=== PATIENT | male | born 1985 | race Caucasian/White ===

== ENCOUNTER → 2017-03-27 | Outpatient (CLI) | payer MEDICAID ==
[2017-03-27 11:03] LABS: Basophils % (A) 0 %; CHCM 33.8; Eosinophils # (A) 0.1 k/uL (0-0.7); Eosinophils % (A) 1 %; HCT 45.7 % (39.0-53.0); HDW 2.44; HGB 15.6 gm/dL (13.0-17.5); Luc # (Auto) 0.12; Luc % (Auto) 3; Lymphocytes # (A) 1.3 k/uL (1.0-4.8); Lymphocytes % (A) 27 %; MCH 30.3 pg (25.0-35.0); MCHC 34.1 g/dL (31.0-37.0); MCV 88.9 fL (80.0-100.0); Mean Platelet Volume 7.1; Monocytes # (A) 0.5 k/uL (0-1.0); Monocytes % (A) 10 %; Neutrophils # (A) 2.8 k/uL (1.3-7.7); Neutrophils % (A) 59 %; RBC 5.14 m/uL (4.30-5.90); RDW 12.5 % (11.5-15.5); WBC 4.8 k/uL (3.8-10.6); WBC (Perox) 5.14
[2017-03-27 11:09] LABS: Anion Gap 10 mmol/L; Blood Urea Nitrogen 20 mg/dL (9-20); Calcium 9.7 mg/dL (8.4-10.2); Carbon Dioxide 28 mmol/L (22-30); Chloride 104 mmol/L (98-107); Cholesterol 146 mg/dL (<200); Glucose 93 mg/dL (74-99); HDL Cholesterol 51 mg/dL (40-60); Non-African American GFR(MDRD) >60 (>60 ml/min/1.73 sqM); Sodium 142 mmol/L (137-145); Triglycerides 54 mg/dL (<150)
== END | disposition home or self-care (01) ==
LOC: LABWHC1 10:20
PROVIDERS: ATTEND Family Medicine
DX: H91.8X1 Other specified hearing loss, right ear (principal)
CPT/HCPCS: 36415; 80048; 80061; 85025

== ENCOUNTER → 2017-06-01 | Outpatient (CLI) | payer MEDICAID ==
--- NOTE | 2017-06-01 10:36 | CT ---
EXAMINATION TYPE: CT iac w con DATE OF EXAM: 06/01/2017 COMPARISON: NONE HISTORY: Hearing loss, acoustic nerve disorder CT DLP: 150 mGycm Automated exposure control for dose reduction was used. CONTRAST: CT scan of the IACs is performed with IV Contrast, patient injected with 100 mL of Omnipaque 300. FINDINGS: There is abnormal soft tissue at the level of the auditory ossicles on the right extending into the epitympanic recess. Some thickening of the tympanic membrane is noted. External auditory can als are patent. There is no erosion of the scutum bilaterally. Mastoid air cells are well aerated. Se micircular canals, cochlea and vestibule are symmetric. Temporomandibular joints are intact. Internal auditory canals show symmetric appearance. Inflammatory change noted within the sphenoid sinus. Mucoperiosteal thickening also present within th e maxillary sinus on the right greater than left. Ostiomeatal units are patent. Orbits are intact and show symmetric appearance. IMPRESSION: Correlate for possible cholesteatoma on the right. Sinus disease.
== END | disposition home or self-care (01) ==
LOC: RADCTMAIN 08:31
PROVIDERS: ATTEND Otolaryngology
DX: H90.71 Mixed conductive and sensorineural hearing loss, unilateral, right ear, with unrestricted hearing on the contralateral side (principal); H93.3X1 Disorders of right acoustic nerve
CPT/HCPCS: 70481; Q9967